=== PATIENT | male | born 1965 | race Two or more races ===

== ENCOUNTER 2022-02-18 10:16 | Inpatient (IN) | payer MEDICAID ==
[~2022-02-18] VITALS: Ht 172.7 cm; Wt 89.9 kg
[2022-02-18 18:15] VITALS: BP 154/95
[2022-02-18 18:17] VITALS: BP 154/95
[2022-02-18] MEDS ORDERED: ACETAMINOPHEN 325 MG TABLET PO PRN (18:30)
[2022-02-18] MEDS ORDERED: IBUPROFEN 600 MG TABLET PO PRN (18:30)
[2022-02-18] MEDS ORDERED: ONDANSETRON HCL 4 MG TABLET PO PRN (18:30)
[2022-02-18] MEDS ORDERED: ALBUTEROL SULFATE HFA 90 MCG/PUFF 8 GM INHALER IH PRN (18:30)
[2022-02-18] MEDS ORDERED: PETROLATUM,WHITE 28 GM JELLY TP PRN (18:30)
[2022-02-18] MEDS ORDERED: DOCUSATE SODIUM 100 MG CAPSULE PO PRN (18:30)
[2022-02-18] MEDS ORDERED: GuaiFENesin/D-METHORPHAN [SUGAR-FREE] 200-20MG/10 ML SYRUP UDCUP PO PRN (18:30)
[2022-02-18] MEDS ORDERED: MAGNESIUM HYDROXIDE SUSPENSION 30 ML UDCUP PO PRN (18:30)
[2022-02-18] MEDS ORDERED: LOPERAMIDE HCL 2 MG CAPSULE PO PRN (18:30)
[2022-02-18] MEDS ORDERED: CloNIDine HCL 0.1 MG TABLET PO PRN (18:30)
[2022-02-18] MEDS: METOPROLOL TARTRATE 50 MG TABLET PO SCH (18:41)
[2022-02-19] MEDS: MetFORMIN HCL 500 MG TABLET PO SCH ×2 (06:56→16:32)
[2022-02-19] MEDS: NAPROXEN 500 MG TABLET PO SCH ×2 (08:51→16:31)
[2022-02-19] MEDS: AmLODIPine BESYLATE 10 MG TABLET PO SCH (08:51)
[2022-02-19] MEDS: METOPROLOL TARTRATE 50 MG TABLET PO SCH ×2 (08:51→16:31)
[2022-02-19 09:32] VITALS: BP 150/84
[2022-02-19] MEDS: NICOTINE 14 MG/24 HOUR PATCH TD PRN (12:06)
[2022-02-19] MEDS: ARIPiprazole 10 MG TABLET PO SCH (12:11)
[2022-02-19 14:41] LABS: BASOPHILS % (AUTO) 1.4 % (0.0-2.0); HEMATOCRIT 39.7 % (41-53); HEMOGLOBIN 13.1 g/dL (13.5-17.5); LYMPHOCYTES # (AUTO) 1.9 K/uL (1.0-4.8); LYMPHOCYTES % (AUTO) 20.7 % (22.0-44.0); MEAN CORPUSCULAR HEMOGLOBIN 27.4 pg (26.0-34.0); MEAN CORPUSCULAR HGB CONC 32.9 G/dL (31.0-37.0); MEAN CORPUSCULAR VOLUME 83 fL (80-100); MONOCYTES # (AUTO) 0.8 K/uL (0.1-1.0); MONOCYTES % (AUTO) 8.8 % (2.0-9.0); NEUTROPHILS # (AUTO) 6.1 K/uL (1.8-7.7); NEUTROPHILS % (AUTO) 66.1 % (40.0-70.0); PLATELET COUNT (AUTO) 487 K/uL (150-450); RED BLOOD CELL COUNT(AUTO) 4.76 MIL/uL (4.50-5.90); RED CELL DISTRIBUTION WIDTH 15.7 % (11.5-14.5)
[2022-02-19 15:03] LABS: ALANINE AMINOTRANSFERASE 21 U/L (12-78); ALBUMIN 3.7 g/dL (3.4-5.0); ALKALINE PHOSPHATASE 132 U/L (46-116); ANION GAP 7 mmol/L (8-16); ASPARTATE AMINOTRANSFERASE 26 U/L (15-37); BILIRUBIN,TOTAL 0.3 mg/dL (0.1-1.0); CALCIUM, TOTAL 9.7 mg/dL (8.8-10.5); CARBON DIOXIDE 27 mmol/L (22-29); CHLORIDE 103 mmol/L (98-107); CREATININE 0.96 mg/dL (0.60-1.30); FREE T4 (FREE THYROXINE) 0.95 ng/dL (0.76-1.46); GLUCOSE,RANDOM 140 mg/dL (70-110); POTASSIUM 4.7 mmol/L (3.5-5.1); SODIUM SERUM 137 mmol/L (136-145); TOTAL PROTEIN, SERUM 7.5 g/dL (6.4-8.2); UREA NITROGEN, BLOOD 13 mg/dL (7-18)
[2022-02-19 15:04] LABS: GLOMERULAR FILTR. RATE CALC > 60 mL/min (>60)
[2022-02-19 16:31] VITALS: BP 149/79
[2022-02-19] MEDS: MIRTAZAPINE 30 MG TABLET PO SCH (20:05)
[2022-02-19] MEDS: ZOLPIDEM TARTRATE 10 MG TABLET PO PRN (20:39)
[2022-02-20 03:17] VITALS: BP 148/85
[2022-02-20] MEDS: IBUPROFEN 400 MG TABLET PO PRN (03:17)
[2022-02-20] MEDS: LORazepam 2 MG TABLET PO PRN ×2 (04:14→13:58)
[2022-02-20] MEDS: MetFORMIN HCL 500 MG TABLET PO SCH ×2 (06:56→16:56)
[2022-02-20] MEDS: ARIPiprazole 10 MG TABLET PO SCH (08:27)
[2022-02-20] MEDS: METOPROLOL TARTRATE 50 MG TABLET PO SCH ×3 (08:28→16:56)
[2022-02-20] MEDS: AmLODIPine BESYLATE 10 MG TABLET PO SCH ×2 (08:28→09:00)
[2022-02-20] MEDS: NAPROXEN 500 MG TABLET PO SCH ×2 (08:28→16:57)
[2022-02-20 09:58] VITALS: BP 114/64
[2022-02-20] MEDS: NICOTINE 14 MG/24 HOUR PATCH TD PRN (14:11)
[2022-02-20 15:03] VITALS: BP 128/78
[2022-02-20 16:12] VITALS: BP 128/78
[2022-02-20] MEDS: MIRTAZAPINE 30 MG TABLET PO SCH (20:11)
[2022-02-20] MEDS: ZOLPIDEM TARTRATE 10 MG TABLET PO PRN (20:35)
[2022-02-21] MEDS: AmLODIPine BESYLATE 10 MG TABLET PO SCH (09:04)
[2022-02-21] MEDS: ARIPiprazole 10 MG TABLET PO SCH (09:04)
[2022-02-21] MEDS: METOPROLOL TARTRATE 50 MG TABLET PO SCH ×2 (09:04→16:06)
[2022-02-21] MEDS: NAPROXEN 500 MG TABLET PO SCH ×2 (09:04→16:06)
[2022-02-21] MEDS: CYCLOBENZAPRINE HCL 10 MG TABLET PO SCH (09:24)
[2022-02-21] MEDS: LORazepam 2 MG TABLET PO PRN ×2 (10:06→15:14)
[2022-02-21] MEDS: IBUPROFEN 400 MG TABLET PO PRN (10:06)
[2022-02-21 10:08] VITALS: BP 137/79
[2022-02-21 11:07] VITALS: BP 140/96
[2022-02-21 16:35] VITALS: BP 130/84
[2022-02-21] MEDS: MetFORMIN HCL 500 MG TABLET PO SCH ×2 (17:00→18:29)
[2022-02-21] MEDS: MIRTAZAPINE 30 MG TABLET PO SCH (20:08)
[2022-02-21] MEDS: HALOPERIDOL 5 MG TABLET PO PRN (20:57)
[2022-02-21] MEDS: MAG HYDROX/AL HYDROX/SIMETH ES 30 ML SUSPENSION UDCUP PO PRN (20:58)
[2022-02-22 00:05] VITALS: BP 127/88
[2022-02-22] MEDS: ZOLPIDEM TARTRATE 10 MG TABLET PO PRN (00:12)
[2022-02-22] MEDS: IBUPROFEN 400 MG TABLET PO PRN ×2 (00:13→19:52)
[2022-02-22] MEDS: MetFORMIN HCL 500 MG TABLET PO SCH ×2 (07:06→16:32)
[2022-02-22] MEDS: AmLODIPine BESYLATE 10 MG TABLET PO SCH (08:40)
[2022-02-22] MEDS: NAPROXEN 500 MG TABLET PO SCH ×2 (08:40→16:32)
[2022-02-22] MEDS: METOPROLOL TARTRATE 50 MG TABLET PO SCH ×2 (08:40→16:32)
[2022-02-22] MEDS: ARIPiprazole 10 MG TABLET PO SCH (08:40)
[2022-02-22] MEDS: CYCLOBENZAPRINE HCL 10 MG TABLET PO SCH (08:41)
[2022-02-22 08:56] VITALS: BP 127/85
[2022-02-22] MEDS: LORazepam 2 MG TABLET PO PRN ×2 (14:38→19:52)
[2022-02-22] MEDS: NICOTINE 14 MG/24 HOUR PATCH TD PRN (15:31)
[2022-02-22] MEDS: MAG HYDROX/AL HYDROX/SIMETH ES 30 ML SUSPENSION UDCUP PO PRN (15:32)
[2022-02-22 16:24] VITALS: BP 117/65
[2022-02-22 17:46] LABS: GLUCOMETER DEV NAME(LOC) 3EX.; GLUCOSE,POINT OF CARE 139 MG/DL (70-110)
[2022-02-22] MEDS: MIRTAZAPINE 30 MG TABLET PO SCH (20:46)
[2022-02-22 22:11] VITALS: BP 125/80
[2022-02-22] MEDS ORDERED: HALOPERIDOL LACTATE 5 MG/ML VIAL ONE (22:43)
[2022-02-22] MEDS ORDERED: DiphenhydrAMINE HCL 50 MG/ML VIAL ONE (22:43)
[2022-02-22] MEDS ORDERED: DiphenhydrAMINE HCL 50 MG/ML VIAL IM ONE (22:45)
[2022-02-22] MEDS ORDERED: HALOPERIDOL LACTATE 5 MG/ML VIAL IM ONE (22:45)
[2022-02-22] MEDS ORDERED: LORazepam 2 MG/ML VIAL IM ONE (22:45)
[2022-02-23] MEDS: ZOLPIDEM TARTRATE 10 MG TABLET PO PRN ×2 (00:41→20:26)
[2022-02-23] MEDS: MetFORMIN HCL 500 MG TABLET PO SCH ×2 (07:10→16:40)
[2022-02-23 07:14] LABS: COVID AG,FIA SOURCE NASAL SWAB
[2022-02-23 08:00] VITALS: BP 119/81
[2022-02-23] MEDS: CYCLOBENZAPRINE HCL 10 MG TABLET PO SCH (09:18)
[2022-02-23] MEDS: NAPROXEN 500 MG TABLET PO SCH ×2 (09:18→16:39)
[2022-02-23] MEDS: AmLODIPine BESYLATE 10 MG TABLET PO SCH (09:19)
[2022-02-23] MEDS: METOPROLOL TARTRATE 50 MG TABLET PO SCH ×2 (09:19→16:39)
[2022-02-23] MEDS: ARIPiprazole 10 MG TABLET PO SCH (09:19)
[2022-02-23] MEDS: NICOTINE 14 MG/24 HOUR PATCH TD PRN (09:22)
[2022-02-23] MEDS: HALOPERIDOL 5 MG TABLET PO PRN ×2 (11:29→16:40)
[2022-02-23] MEDS: LORazepam 2 MG TABLET PO PRN ×2 (11:29→16:40)
[2022-02-23] MEDS: MAG HYDROX/AL HYDROX/SIMETH ES 30 ML SUSPENSION UDCUP PO PRN (14:58)
[2022-02-23 16:00] VITALS: BP 126/71
[2022-02-23 16:37] LABS: GLUCOMETER DEV NAME(LOC) 3E.I 2; GLUCOSE,POINT OF CARE 187 MG/DL (70-110)
[2022-02-23] MEDS: MIRTAZAPINE 30 MG TABLET PO SCH (20:22)
[2022-02-24 06:41] LABS: GLUCOMETER DEV NAME(LOC) 3E.I 2; GLUCOSE,POINT OF CARE 164 MG/DL (70-110)
[2022-02-24] MEDS: NAPROXEN 500 MG TABLET PO SCH (08:23)
[2022-02-24] MEDS: METOPROLOL TARTRATE 50 MG TABLET PO SCH (08:24)
[2022-02-24] MEDS: MetFORMIN HCL 500 MG TABLET PO SCH (08:24)
[2022-02-24] MEDS: ARIPiprazole 10 MG TABLET PO SCH (08:24)
[2022-02-24] MEDS: AmLODIPine BESYLATE 10 MG TABLET PO SCH (08:24)
[2022-02-24] MEDS: CYCLOBENZAPRINE HCL 10 MG TABLET PO SCH (08:24)
[2022-02-24 08:49] VITALS: BP 138/85
[2022-02-24] MEDS: NICOTINE 14 MG/24 HOUR PATCH TD PRN (12:22)
[2022-02-24] MEDS: LORazepam 2 MG TABLET PO PRN (12:24)
[2022-02-24] MEDS: HALOPERIDOL 5 MG TABLET PO PRN (12:24)
== END 2022-02-24 13:00 | disposition home or self-care (01) | DRG 750 ==
LOC: 3EI 18:01
PROVIDERS: ADMIT Psychiatry & Neurology Psychiatry; ATTEND Psychiatry & Neurology Psychiatry
DX: F25.1 Schizoaffective disorder, depressive type (principal); R45.851 Suicidal ideations; E11.9 Type 2 diabetes mellitus without complications; E66.3 Overweight; E78.5 Hyperlipidemia, unspecified; Z20.822 Contact with and (suspected) exposure to COVID-19; I10 Essential (primary) hypertension; Z91.51 Personal history of suicidal behavior; Z95.0 Presence of cardiac pacemaker; Z79.899 Other long term (current) drug therapy; Z59.00 Homelessness unspecified; Z68.30 Body mass index [BMI] 30.0-30.9, adult
CPT/HCPCS: 80053; 82962; 84439; 85025; J1200; J1630; J2060; J3535